=== PATIENT | male | born 1935 | race Caucasian/White ===

== ENCOUNTER 2018-05-03 16:41 | Emergency (ER) | payer MEDICARE, BC ==
[~2018-05-03] VITALS: Wt 82.5 kg
[2018-05-03] MEDS ORDERED: SOD CHLORIDE 0.9% 1,000 ML IV STA (19:54)
--- NOTE | 2018-05-03 19:56 | ERD ---
ER Documentation Chief Complaint Chief Complaint bib self, cc: constipation x 3 weeks, taking gas x with no relief HPI 82-year-old gentleman who presents to the emergency room with intermittent abdominal bloating since March. Over the last several weeks the patient is having increased constipation. Over the last 48 hours passing no stool and no gas. He notes abdominal bloating with mild left-sided abdominal discomfort. No nausea or vomiting chest pain or shortness of breath. ROS All systems reviewed and are negative except as per history of present illness. Medications Home Meds Active Scripts Glycerin* (Glycerin (Adult)*) 1 Each Supp.rect, 1 EACH ND DAILY PRN for CONSTIPATION, #10 SUPP.RECT Prov:DAVID VELEZ MD 05/03/18 Magnesium Citrate* (Magnesium Citrate*) 296 Ml Solution, 296 ML PO ONCE PRN for CONSTIPATION, #1 BOTTLE 3 Refills Prov:DAVID VELEZ MD 05/03/18 Reported Medications Multivits,Ca,Min/Iron/FA/Lycop (Centrum Men's Tablet) 1 Each Tablet, 1 EACH PO, TAB 05/03/18 [place]-3 Fatty Acids/Fish Oil (Fish Oil 1,000 mg Capsule) 1 Each Capsule, 1 EACH PO QAM, CAP 05/03/18 Aspirin* (Aspirin* EC) 81 Mg Tablet.dr, 81 MG PO DAILY, TAB 05/03/18 Simethicone (Gas Relief 80) 80 Mg Tab.chew, 80 MG PO BID, TAB.CHEW 05/03/18 Esomeprazole Mag Trihydrate (Nexium) 40 Mg Capsule.dr, 40 MG PO DAILY, #30 CAP 05/03/18 Atorvastatin Calcium* (Atorvastatin Calcium*) 20 Mg Tablet, 20 MG PO QHS, #30 TAB 05/03/18 Amlodipine Bes/Olmesartan Med (Amlodipine-Olmesartan 10-40 mg) 1 Each Tablet, 1 EACH PO DAILY, TAB 05/03/18 Allergies Allergies: Coded Allergies: No Known Allergy (Unverified , 05/03/18) PMhx/Soc Hypertension, hyperlipidemia FmHx Family History: No diabetes Physical Exam Vitals Vital Signs Date Temp Pulse Resp B/P (MAP) Pulse Ox O2 O2 Flow FiO2 Time Delivery Rate 05/03/18 98.0 70 16 132/78 99 Room Air 21:34 (96) 05/03/18 98.2 89 19 182/80 100 16:46 (114) Physical Exam General: Well developed, well nourished, no acute distress Head: Normocephalic, atraumatic. Eyes: Pupils equally reactive, EOM intact ENT: Moist mucous membranes Neck: Supple, no lymphadenopathy Respiratory: Lungs clear bilaterally, no distress Cardiovascular: RRR, no murmurs, rubs, or gallops Abdominal: Soft, slightly protuberant with inconsistent left-sided abdominal discomfort, no palpable mass, no pulsatile mass : Deferred MSK: No edema, no unilateral swelling, 5/5 strength Neurologic: Alert and oriented, moving all extremities, normal speech, no focal weakness, no cerebellar signs Skin: No rash Psych: Normal mood Result Diagram: 05/03/18201405/03/182014 Results 24 hrs Laboratory Tests Test 05/03/18 20:15 White Blood Count 6.4 10^3/ul Red Blood Count 4.69 10^6/ul Hemoglobin 14.4 g/dl Hematocrit 42.4 % Mean Corpuscular Volume 90.4 fl Mean Corpuscular Hemoglobin 30.7 pg Mean Corpuscular Hemoglobin Concent 34.0 g/dl Red Cell Distribution Width 12.7 % Platelet Count 202 10^3/UL Mean Platelet Volume 9.7 fl Immature Granulocytes % 0.200 % Neutrophils % 64.2 % Lymphocytes % 26.2 % Monocytes % 7.8 % Eosinophils % 1.1 % Basophils % 0.5 % Nucleated Red Blood Cells % 0.0 /100WBC Immature Granulocytes # 0.010 10^3/ul Neutrophils # 4.1 10^3/ul Lymphocytes # 1.7 10^3/ul Monocytes # 0.5 10^3/ul Eosinophils # 0.1 10^3/ul Basophils # 0.0 10^3/ul Nucleated Red Blood Cells # 0.0 10^3/ul Sodium Level 141 mmol/L Potassium Level 3.7 mmol/L Chloride Level 101 mmol/L Carbon Dioxide Level 31 mmol/L Anion Gap 9 Blood Urea Nitrogen 13 mg/dl Creatinine 0.81 mg/dl Est Glomerular Filtrat Rate mL/min mL/min Glucose Level 115 mg/dl Calcium Level 9.6 mg/dl Total Bilirubin 2.0 mg/dl Direct Bilirubin 0.00 mg/dl Indirect Bilirubin 2.0 mg/dl Aspartate Amino Transf (AST/SGOT) 34 IU/L Alanine Aminotransferase (ALT/SGPT) 37 IU/L Alkaline Phosphatase 46 IU/L Total Protein 7.6 g/dl Albumin 4.4 g/dl Globulin 3.20 g/dl Albumin/Globulin Ratio 1.37 Lipase 73 U/L Current Medications Medications Dose Sig/Mary Start Time Status Last (Trade) Ordered Route PRN Stop Time Admin Dose Reason Admin Sodium 1,000 ml @ Q1H STAT 05/03/18 DC 05/03/18 Chloride 1,000 mls/hr IV 19:54 20:13 05/03/18 20:53 Procedures/MDM EKG, MONITORS, & DIAGNOSTIC IMAGING: CT abdomen and pelvis: IMPRESSION: No evidence of bowel obstruction or inflammation. There is no appendicitis. There is diverticulosis without diverticulitis. Atherosclerotic disease is present. No renal or ureteral calculi with no evidence of hydronephrosis. Bilateral moderate size fat containing inguinal hernias. Status post prostatectomy. LAB INTERPRETATION: * CBC shows no evidence of infection * Chemistry reveals no evidence of hepatobiliary obstruction MEDICAL DECISION MAKING: Patient with abdominal bloating and constipation. Likely consistent with constipation however given the patient's age concern for mass, acute intra- abdominal process. Lower concern for acute vascular process. Consider bowel obstruction. CT imaging appropriate in this setting. Laboratory testing appropriate. Advancing bowel regimen would be likely if negative workup exists. ER COURSE: * Patient continues to be exquisitely well-appearing in the emergency room setting. Laboratory testing and diagnostic imaging are unrevealing. The patient can be safely discharged with bowel regimen for constipation. CONSULTATION: None DISPOSITION PLAN: The patient does not have an identifiable emergent medical condition that warrants inpatient hospitalization at this time. The patient is deemed safe for discharge with outpatient follow-up. We discussed follow up with the patient's primary care doctor within 24 to 48 hours as needed. We also discussed return to the emergency room for worsening symptoms or worsening condition. Outpatient referral: None required Discharge Medications: See discharge summary Departure Diagnosis: Primary Impression: Abdominal pain Abdominal location: generalized Qualified Codes: R10.84 - Generalized abdominal pain Additional Impression: Constipation Constipation type: unspecified constipation type Qualified Codes: K59.00 - Constipation, unspecified Condition: Stable DAVID VELEZ MD May 03, 2018 19:56
[2018-05-03] MEDS ORDERED: MAGN296S40 PO (21:00)
[2018-05-03] MEDS ORDERED: GLYC1SUP92 PR (21:00)
[2018-05-03] MEDS ORDERED: AMLO-498 PO (21:06)
[2018-05-03] MEDS ORDERED: ESOM40CA PO (21:07)
[2018-05-03] MEDS ORDERED: ATOR20TA38 PO (21:07)
[2018-05-03] MEDS ORDERED: OMEG-135 PO (21:08)
[2018-05-03] MEDS ORDERED: ASPI-817 PO (21:08)
[2018-05-03] MEDS ORDERED: SIME80TA45 PO (21:08)
[2018-05-03] MEDS ORDERED: MULT-861 PO (21:09)
[2018-05-03 21:34] VITALS: BP 132/78; PULSE 70; RESP 16
== END 2018-05-03 21:34 | disposition home or self-care (01) ==
LOC: E/R 16:41
DX: K59.00 Constipation, unspecified (principal)
CPT/HCPCS: 36415; 74176; 80053; 83690; 85025; 99285; J7030